=== PATIENT | male | born 1945 | race Caucasian/White ===

== ENCOUNTER 2023-10-11 06:41 | Day surgery (SDC) | payer OTHER ==
[~2023-10-11] VITALS: Ht 172.7 cm; Wt 90.5 kg
[2023-10-11] VITALS (11 sets, daily range): BP systolic 105–175; BP diastolic 54–83; PULSE 72–79; RESP 14–20; TEMP 96.6–98.1
[~2023-10-11 06:41] MED LIST: APIX5TAB PO; ASPI-1443 PO; BUME2TAB5 PO; CARV25TA PO; CHOL200074 PO; FERS325 PO; FINA5TAB41 PO; INSU100V3 IJ; MINO10TA3 PO; MULT-1283 PO; SEMA1PEN3 SQ; SODI325T PO; TUMERIC PO; VITA1CAP PO; WHEA98PO PO
[2023-10-11] MEDS ORDERED: cefTRIAXone 1G VIAL ONE (06:46)
[2023-10-11] MEDS: 0.9%NACL 1000ML 1,000 ML IV ONE (06:54)
[2023-10-11] MEDS ORDERED: proPOFol 10 MG/ML 20ML VIAL IV ONE (08:34)
[2023-10-11] MEDS ORDERED: PHENYLEPHRINE HCL 10 MG/ML 1ML VIAL IV ONE (08:34)
== END 2023-10-11 10:20 | disposition home or self-care (01) ==
LOC: DAH 06:41 → ENDO 06:41
PROVIDERS: ATTEND Internal Medicine Gastroenterology
DX: R19.4 Change in bowel habit (principal); K29.50 Unspecified chronic gastritis without bleeding; K57.30 Diverticulosis of large intestine without perforation or abscess without bleeding; K21.00 Gastro-esophageal reflux disease with esophagitis, without bleeding; K44.9 Diaphragmatic hernia without obstruction or gangrene; K31.89 Other diseases of stomach and duodenum; D50.9 Iron deficiency anemia, unspecified; E78.00 Pure hypercholesterolemia, unspecified; I12.9 Hypertensive chronic kidney disease with stage 1 through stage 4 chronic kidney disease, or unspecified chronic kidney disease; E11.22 Type 2 diabetes mellitus with diabetic chronic kidney disease; N18.9 Chronic kidney disease, unspecified; Z80.0 Family history of malignant neoplasm of digestive organs; Z95.0 Presence of cardiac pacemaker; Z98.890 Other specified postprocedural states; Z79.01 Long term (current) use of anticoagulants; Z79.899 Other long term (current) drug therapy
CPT/HCPCS: 82948; 43239; 45378; J7030 ×2; J0696; J2704; J2371; A4620; A7002; J3490